=== PATIENT | male | born 1985 | race Hispanic/Latino ===

== ENCOUNTER 2023-03-27 20:41 | Emergency (ER) | payer SELFPAY ==
[2023-03-27] MEDS ORDERED: LIDOCAINE 1% MPF 5 ML VIAL ONE (21:11)
[2023-03-27] MEDS ORDERED: TDAP (DIPHTH,PERTUSS(ACELL),TET VAC) 0.5 ML VIAL IMVAC ONE (21:15)
--- NOTE | 2023-03-27 21:30 | EDPHYS ---
Physician Documentation [facility] Name: Trav Oliver Jr Age: 37 yrs Sex: Male : 1985 Arrival Date: 03/27/2023 Time: 20:41 Bed 8 Private MD: ED Physician Jayde Vargas HPI: 03/27 21:25 This 37 yrs old Male presents to ER via Ambulatory with complaints of FINGER sd2 LACERATION. 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 Unknown last tetanus. Bleeding controlled. Continues to have full range of motion of the finger without significant pain.. Historical: - Allergies: 20:52 No Known Allergies; as6 - Home Meds: 20:52 None [Active]; as6 - PMHx: 20:52 None; as6 - PSHx: 20:52 None; as6 - Immunization history:: Last tetanus immunization: unknown. - Social history:: Smoking status: Patient denies any tobacco usage or history of. ROS: 21:25 Constitutional: Negative for fever, chills, and weight loss, MS/Extremity: Negative for sd2 injury and deformity, Skin: Positive for injury, Negative for rash, and discoloration, Exam: 21:25 Constitutional: This is a well developed, well nourished patient who is awake, alert, sd2 and in no acute distress. Skin: Warm, dry with normal turgor. Normal color with no rashes, no lesions, and no evidence of cellulitis. Superficial laceration approximately 3.5 cm noted to finger bed diagonally of left ring finger with controlled bleeding. MS/ Extremity: Pulses equal, no cyanosis. Neurovascular intact. Full, normal range of motion. Ambulatory without difficulty. Vital Signs: 20:51 BP 146 / 87; Pulse 89; Resp 18 S; Temp 99.6(O); Pulse Ox 100% on R/A; Weight 108.86 kg as6 (R); Height 5 ft. 11 in. (R); Pain 4/10; 20:51 Body Mass Index 33.47 (108.86 kg, 180.34 cm) as6 20:51 Pain Scale: Adult as6 Laceration: 21:25 Wound Repair of 3cm ( 1.4in ) subcutaneous laceration to left hand. Linear shaped.. sd2 Hemostasis noted.. Distal neuro/vascular/tendon intact. Anesthesia: Regional Block with 5 mls of 1% lidocaine. Wound prep: Wound irrigation by me. Skin closed with 7 4-0 Prolene using simple sutures and sterile technique. Dressed with non-adherent dressing. Patient tolerated well. MDM: 20:51 Patient medically screened. sd2 21:25 Differential diagnosis: superficial laceration, tendon injury, vascular injury, among sd2 others. Data reviewed: vital signs, nurses notes. Test considered but Not performed: X-ray: not indicated. Counseling: I had a detailed discussion with the patient and/or guardian regarding the historical points, exam findings, and any diagnostic results supporting the discharge/admit diagnosis, the need for outpatient follow up, to return to the emergency department if symptoms worsen or persist or if there are any questions or concerns that arise at home, suture removal. ED course: Wound explored and superficial with no signs of fracture or tendon rupture. Repaired without complication or difficulty. Pt tolerated well and advised of continued supportive care and need for outpatient follow up. Verbalizes understanding of discharge plan and strict return precautions. . 03/27 21:11 Order name: Dressing - Wound; Complete Time: 21:12 rv 03/27 21:11 Order name: Gloves, Sterile; Complete Time: 21:12 rv 03/27 21:11 Order name: Setup Suture Tray; Complete Time: 21:12 rv Administered Medications: 21:11 Drug: Lidocaine Infiltration (1 %) 5 mg Infiltration once {Note: ADMINISTERED BY DR payton VARGAS.} Route: Infiltration; 21:12 Drug: Boostrix Tdap IM 0.5 ml IM once; as a single dose Route: IM; Site: right deltoid; rv 21:39 Follow up: Response: No adverse reaction rv Disposition Summary: 03/27/23 21:30 Discharge Ordered Problem: new sd2 Symptoms: have improved sd2 Condition: Stable sd2 Diagnosis - Left ring finger laceration without nail bed injury sd2 Followup: sd2 - With: Private Physician - When: 1 week - Reason: Staple/Suture removal Followup: sd2 - With: Emergency Department - When: 1 week - Reason: Staple/Suture removal Discharge Instructions: - Discharge Summary Sheet sd2 - Laceration Care, Adult sd2 Forms: - Medication Reconciliation Form sd2 - Thank You Letter sd2 - Antibiotic Education sd2 - Prescription Opioid Use sd2 - Patient Portal Instructions sd2 - Leadership Thank You Letter sd2 Signatures: Ar Singer, RN RN rv Chang Galindo RN RN as6 Jayde Vargas MD MD sd2 Corrections: (The following items were deleted from the chart) 21:26 21:25 37 yo M presents with CC of left . sd2 sd2
--- NOTE | 2023-03-27 21:30 | ER ---
Nurse's Notes [facility] Name: Trav Oliver Jr Age: 37 yrs Sex: Male : 1985 Arrival Date: 03/27/2023 Time: 20:41 Bed 8 Private MD: Diagnosis: Left ring finger laceration without nail bed injury Presentation: 03/27 20:52 Chief complaint: Patient states: pt cut his left ring finger with a knife. Coronavirus as6 screen: At this time, the client does not indicate any symptoms associated with coronavirus-19. Ebola Screen: No symptoms or risks identified at this time. Initial Sepsis Screen: Does the patient meet any 2 criteria? No. Patient's initial sepsis screen is negative. Does the patient have a suspected source of infection? No. Patient's initial sepsis screen is negative. Risk Assessment: Do you want to hurt yourself or someone else? Patient reports no desire to harm self or others. Onset of symptoms was March 27, 2023. 20:52 Acuity: JOHN 4 as6 20:52 Method Of Arrival: Ambulatory as6 Historical: - Allergies: 20:52 No Known Allergies; as6 - Home Meds: 20:52 None [Active]; as6 - PMHx: 20:52 None; as6 - PSHx: 20:52 None; as6 - Immunization history:: Last tetanus immunization: unknown. - Social history:: Smoking status: Patient denies any tobacco usage or history of. Screenin:10 [facility] ED Fall Risk Assessment (Adult) History of falling in the last 3 months, rv including since admission No falls in past 3 months (0 pts) Altered Elimination Score/Fall Risk Level 0 - 2 = Low Risk Oriented to surroundings, Maintained a safe environment, Educated pt \T\ family on fall prevention, incl call for assistance when getting out of bed, Assessed \T\ reinforced patient's understanding of fall precautions, Provided non-skid footwear, Hourly rounding (assess needs \T\ fall precautionary measures) done, Used ambulatory aids as needed (educated on \T\ assisted with), Used gait belt as appropriate. Abuse screen: Denies threats or abuse. Denies injuries from another. Nutritional screening: No deficits noted. Tuberculosis screening: No symptoms or risk factors identified. Assessment: 21:08 General: Appears comfortable, Behavior is calm, cooperative. Pain: Complains of pain in rv 4TH DIGIT, LEFT HAND. Neuro: Level of Consciousness is awake, alert, obeys commands, Oriented to person, place, time, situation. Cardiovascular: Capillary refill < 3 seconds Patient's skin is warm and dry. Respiratory: Airway is patent Respiratory effort is even, unlabored. GI: No signs and/or symptoms were reported involving the gastrointestinal system. : No signs and/or symptoms were reported regarding the genitourinary system. Injury Description: Laceration sustained to 4TH DIGIT, LEFT HAND is 0.5 to 2.5 cm long, not bleeding. Vital Signs: 20:51 BP 146 / 87; Pulse 89; Resp 18 S; Temp 99.6(O); Pulse Ox 100% on R/A; Weight 108.86 kg as6 (R); Height 5 ft. 11 in. (R); Pain 4/10; 20:51 Body Mass Index 33.47 (108.86 kg, 180.34 cm) as6 20:51 Pain Scale: Adult as6 ED Course: 20:42 Patient arrived in ED. [email or web address] 20:51 Jayde Vargas MD is Attending Physician. sd2 20:51 Arm band placed on. as6 20:54 Triage completed. as6 20:56 Ar Singer, RN is Primary Nurse. rv 21:10 Patient has correct armband on for positive identification. Provided Education on: rv SUTURE/ WOUND CARE. 21:10 Assist provider with laceration repair on 4TH DIGIT, LEFT HAND that was 2.5 cm. or less rv using sutures. Set up tray. Performed by Jayde Vargas MD Dressed with 4X4s, Patient tolerated well. Patient did not have IV access during this emergency room visit. Administered Medications: 21:11 Drug: Lidocaine Infiltration (1 %) 5 mg Infiltration once {Note: ADMINISTERED BY DR payton VARGAS.} Route: Infiltration; 21:12 Drug: Boostrix Tdap IM 0.5 ml IM once; as a single dose Route: IM; Site: right deltoid; rv 21:39 Follow up: Response: No adverse reaction rv Medication: 21:10 Vaccine Information Statement (VIS) provided today. Questions and/or concerns rv addressed. VIS edition date: March 27, 2023. Outcome: 21:30 Discharge ordered by . [email or web address] 21:38 Discharged to home ambulatory, rv 21:38 Condition: improved 21:38 Discharge instructions given to patient, Instructed on discharge instructions, follow up and referral plans. wound care, Demonstrated understanding of instructions, follow-up care, wound care, 21:39 Patient left the ED. rv Signatures: Ar Singer, RN RN rv Shae Ramirez6 Chang Galindo RN RN as6 Jayde Vargas MD MD sd2
[2023-03-27 22:06] VITALS: BP 146/87; TEMP 99.6; O2SAT 100
== END 2023-03-27 21:39 | disposition home or self-care (01) ==
LOC: ER 20:41
PROC: 0JQK0ZZ Repair Left Hand Subcutaneous Tissue and Fascia, Open Approach (ICD-10-PCS; principal; 2023-03-27)
DX: S61.215A Laceration without foreign body of left ring finger without damage to nail, initial encounter (principal); W26.0XXA Contact with knife, initial encounter; Y93.89 Activity, other specified; Y92.010 Kitchen of single-family (private) house as the place of occurrence of the external cause; Z23 Encounter for immunization
CPT/HCPCS: 96372; 99284; J2001